=== PATIENT | male | born 1955 ===

== ENCOUNTER 2018-03-27 15:22 | Emergency (ER) | payer OTHER ==
[2018-03-27 15:26] VITALS: BP 171/86; PULSE 69; RESP 20; TEMP 98.8; O2SAT 99
--- NOTE | 2018-03-27 15:45 | C.PDOC ---
History Of Present Illness 62 year old male presents to the ED for evaluation of new onset headache, bilateral foot "coldness" for 2 weeks. Patient is c/o "my head feels full." He denies sinus pain, congestion, nausea, vomiting, or truama. Patient states bilateral foot "coldness" has been ongoing for two weeks. He denies swelling and states he is walking without difficulty. Patient states he was diagnosed with possible early diabetes "years ago" but was told diet control only. NEW ONSET NOGUEIRA, B/L FOOT "COLDNESS" X 2 WEEKS. CO "MY HEAD FEELS FULL". NO SINUS PAIN, CONGESTION. NO NV, TRAUMA. B/L FOOT "COLDNESS" X 2 WEEKS. NO SWELL, WALKING WO DIFF. PS DX POSSIBLE EARLY DIABETES "YEARS AGO" BUT WAS TOLD DIET CONTROL ONLY. EXAM NAD NONTOXIC HEENT ATRAUM NONTEND NEURO NEG EXT B/L FEET NO SWELL, PALLOR. NO SIGNS ACUTE ISCHEMIC/VASCULAR CHANGES SKIN WNL REMAINDER NEG Time Seen by Provider: 03/27/18 15:36 Chief Complaint (Nursing): Headache History Per: Patient History/Exam Limitations: no limitations Onset/Duration Of Symptoms: Hrs, Other (2 weeks ) Current Symptoms Are (Timing): Still Present Additional History Per: Patient Past Medical History Reviewed: Historical Data, Nursing Documentation, Vital Signs Vital Signs: Last Vital Signs Temp 98.8 F 03/27/18 15:23 Pulse 69 03/27/18 15:23 Resp 20 03/27/18 15:23 BP 171/86 H 03/27/18 15:23 Pulse Ox 99 03/27/18 17:06 - Medical History PMH: No Chronic Diseases Surgical History: No Surg Hx Family History: States: Unknown Family Hx - Social History Hx Alcohol Use: Yes Hx Substance Use: No - Immunization History Hx Tetanus Toxoid Vaccination: No Hx Influenza Vaccination: No Hx Pneumococcal Vaccination: No Review Of Systems Skin: Positive for: Other (b/l foot "coldness") Neurological: Positive for: Headache Physical Exam - Physical Exam Appears: Non-toxic, No Acute Distress Skin: Normal Color, Warm, Dry, No Pale (to bilateral feet ) Head: Atraumatic, Normacephalic, No Tenderness Eye(s): bilateral: Normal Inspection Ear(s): Bilateral: Normal Nose: Normal, No Discharge Oral Mucosa: Moist Throat: Normal, No Erythema, No Exudate Neck: Normal ROM, Supple Chest: Symmetrical, No Deformity, No Tenderness Cardiovascular: Rhythm Regular, No Murmur Respiratory: Normal Breath Sounds, No Rales, No Rhonchi, No Wheezing Extremity: Normal ROM, No Tenderness, Capillary Refill (less than 2 seconds ), No Deformity, No Swelling, No Other (signs of acute ischemic/vascular changes to bilateral feet ) Neurological/Psych: Oriented x3, Normal Speech, Normal Cognition Gait: Steady ED Course And Treatment O2 Sat by Pulse Oximetry: 99 (on RA) Pulse Ox Interpretation: Normal - CT Scan/US CT Head Other Rad Studies (CT/US): Read By Radiologist, Radiology Report Reviewed CT/US Interpretation: PROCEDURE: CT HEAD WITHOUT CONTRAST. HISTORY: Headache. COMPARISON: None available. TECHNIQUE: Axial computed tomography images were obtained through the head/brain without intravenous contrast. Radiation dose: Total exam DLP = 943.19 mGy-cm. This CT exam was performed using one or more of the following dose reduction techniques: Automated exposure control, adjustment of the mA and/or kV according to patient size, and/ or use of iterative reconstruction technique. FINDINGS: HEMORRHAGE: No acute parenchymal, subarachnoid or hemorrhage. BRAIN: No evidence of large acute infarct. Suspect minimal chronic periventricular white matter ischemic changes. No obvious parenchymal nor extra-axial mass or collection identified on this noncontrast study. . Mild generalized volume loss. Minor vascular calcifications both carotid siphons. The the. VENTRICLES: No obstructive hydrocephalus. CALVARIUM: There are no acute calvarial fracture seen. . There is slight foreshortening of the right occiput likely due to fever chills bulge with abutment of suture. PARANASAL SINUSES: Minor mucosal thickening seen within right maxillary antrum as well as a few ethmoid air cells. MASTOID AIR CELLS: Unremarkable as visualized. No inflammatory changes. OTHER FINDINGS : Orbits and contents unremarkable. IMPRESSION: No acute intracranial hemorrhage. Suspect minimal chronic periventricular white matter ischemic changes. Mild generalized volume loss. Progress Note: CT Head ordered and reviewed. Disposition Counseled Patient/Family Regarding: Studies Performed, Diagnosis, Need For Followup - Disposition Referrals: [facility] [Outside] [facility] [Outside] Disposition: HOME/ ROUTINE Disposition Time: 16:53 Condition: GOOD Instructions: Hyperglycemia, Adult (DC), Paresthesias (DC) Forms: [employer] (Lao) Print Language: SETSWANA - Clinical Impression Clinical Impression: Paresthesia, Hyperglycemia - Scribe Statement The provider has reviewed the documentation as recorded by the Scribe (Reta Morales) Provider Attestation: All medical record entries made by the Scribe were at my direction and personally dictated by me. I have reviewed the chart and agree that the record accurately reflects my personal performance of the history, physical exam, medical decision making, and the department course for this patient. I have also personally directed, reviewed, and agree with the discharge instructions and disposition.
--- NOTE | 2018-03-27 16:35 | CT ---
PROCEDURE: CT HEAD WITHOUT CONTRAST. HISTORY: Headache COMPARISON: None available. TECHNIQUE: Axial computed tomography images were obtained through the head/brain without intravenous contrast. Radiation dose: Total exam DLP = 943.19 mGy-cm. This CT exam was performed using one or more of the following dose reduction techniques: Automated exposure control, adjustment of the mA and/or kV according to patient size, and/or use of iterative reconstruction technique. FINDINGS: HEMORRHAGE: No acute parenchymal, subarachnoid or hemorrhage. BRAIN: No evidence of large acute infarct. Suspect minimal chronic periventricular white matter ischemic changes. No obvious parenchymal nor extra-axial mass or collection identified on this noncontrast study. . Mild generalized volume loss Minor vascular calcifications both carotid siphons. The the VENTRICLES: No obstructive hydrocephalus. CALVARIUM: There are no acute calvarial fracture seen. . There is slight foreshortening of the right occiput likely due to fever chills bulge with abutment of suture. PARANASAL SINUSES: Minor mucosal thickening seen within right maxillary antrum as well as a few ethmoid air cells. MASTOID AIR CELLS: Unremarkable as visualized. No inflammatory changes. OTHER FINDINGS: Orbits and contents unremarkable. IMPRESSION: No acute intracranial hemorrhage. Suspect minimal chronic periventricular white matter ischemic changes. Mild generalized volume loss.
== END 2018-03-27 17:10 | disposition home or self-care (01) ==
LOC: C.ER 15:22
DX: R20.2 Paresthesia of skin (principal); R73.9 Hyperglycemia, unspecified